=== PATIENT | female | born 1940 | race Hispanic/Latino ===

== ENCOUNTER 2017-05-23 09:54 | Day surgery (SDC) | payer MEDICARE ==
[~2017-05-23 09:54] MED LIST: ANCEF/STERILE WATER 2 GM/20 ML 2 GM/20 ML SYRINGE IV NR; NACL 0.9% 1000 ML 1,000 ML IV SCH
[2017-05-23 11:19] LABS: Basophils % (Auto) 0.4 % (0.0-1.8); Eosinophils % (Auto) 3.3 % (0.0-4.3); Hematocrit 38.9 % (30.3-42.9); Hemoglobin 13.3 gm/dl (10.1-14.3); Mean Corpuscular HGB Conc 34 % (30-34); Mean Corpuscular Hemoglobin 31 pg (28-32); Mean Corpuscular Volume 92 fl (79-97); Platelet Count 198 K/mm3 (140-440); Red Blood Count 4.23 M/mm3 (3.65-5.03); Red Cell Distribution Width 14.4 % (13.2-15.2); White Blood Count 4.5 K/mm3 (4.5-11.0)
[2017-05-23 11:32] LABS: Calcium 8.8 mg/dL (8.4-10.2); Chloride 102.5 mmol/L (98-107); Potassium 4.6 mmol/L (3.6-5.0)
--- NOTE | 2017-05-23 11:49 | Short Stay Summary ---
Short Stay Documentation Date of service: 05/23/17 - History Principal diagnosis: Venous hypertension Past Medical History: DVT Past Surgical History: bowel surgery Social history: no significant social history - Allergies and Medications Current Medications: Allergies ether Allergy (Verified 06/03/16 07:18) Nausea Home Medications Medication Instructions Recorded Confirmed Last Taken Type Amlodipine Besylate [Amlodipine 10 mg PO DAILY 12/11/15 05/23/17 05/23/17 History Besylate] Topiramate [Topiramate] 50 mg PO DAILY 12/11/15 05/23/17 05/23/17 History levETIRAcetam [Levetiracetam] 750 mg PO BID 12/11/15 05/23/17 05/22/17 History Apixaban [Eliquis] 5 mg PO BID 05/23/17 05/23/17 05/22/17 History Ferrous Sulfate [Iron] 325 mg PO DAILY 05/23/17 05/23/17 05/22/17 History Pantoprazole Sodium [Pantoprazole 40 mg PO BID 05/23/17 05/23/17 05/22/17 History Sodium] Active Medications Cefazolin Sodium (Ancef/Sterile Water 2 Gm/20 Ml) 2 gm in 20 mls @ 80 mls/hr IV PREOP NR PRN Reason: Protocol Stop: 05/23/17 23:00 Sodium Chloride (Nacl 0.9% 1000 Ml) 1,000 mls @ 42 mls/hr IV DIRECT LOIS - Physical exam General appearance: no acute distress Integumentary: no rash, no growths HEENT: Atraumatic Lungs: Normal air movement Breasts: deferred Heart: Regular rate Gastrointestinal: normal Female Genitourinary: deferred Rectal Exam: deferred Extremities: abnormal (edema) Neurological: Normal gait, Normal speech - Brief post op/procedure progress note Date of procedure: 05/23/17 Pre-op diagnosis: LLE venous hypertensiojn Post-op diagnosis: same Procedure: LLE venography, venoplasty Anesthesia: local Surgeon: MAINOR WADE Estimated blood loss: minimal Pathology: none Condition: stable - Disposition Condition at discharge: Good Disposition: [id number] TO HOME OR SELFCARE Short Stay Discharge Plan Activity: advance as tolerated Weight Bearing Status: Weight Bear as Tolerated Diet: regular Wound: keep clean and dry, per your surgeon's advice Follow up with: ANNE-MARIE CAMPBELL MD [Primary Care Provider] - 7 Days
[2017-05-23] MEDS ORDERED: VERSED ONE ×2 (17:00→17:47)
[2017-05-23] MEDS ORDERED: SUBLIMAZE ONE ×2 (17:00→17:48)
[2017-05-23] MEDS ORDERED: XYLOCAINE 2% INFILTRATI ONE ×4 (17:00→17:19)
[2017-05-23] MEDS ORDERED: HEPARIN/NS 5000 UNIT/500ML(CATH LAB) IR ONE (17:00)
[2017-05-23] MEDS ORDERED: BENADRYL ONE (17:16)
[2017-05-23] MEDS ORDERED: SUBLIMAZE IV ONE (17:16)
[2017-05-23] MEDS ORDERED: VERSED IV ONE ×5 (17:16→17:48)
[2017-05-23] MEDS: SUBLIMAZE IV ONE ×2 (17:19→17:30)
[2017-05-23] MEDS ORDERED: BENADRYL IV ONE (17:21)
[2017-05-23] MEDS ORDERED: ANCEF/STERILE WATER 2 GM/20 ML 2 GM/20 ML SYRINGE IV ONE (17:28)
[2017-05-23] MEDS ORDERED: HEPARIN 10,000 UNITS/10 ML IV ONE (17:30)
[2017-05-23] MEDS ORDERED: HEPARIN 10,000 UNITS/10 ML ONE (17:39)
[2017-05-23] MEDS ORDERED: HEPARIN/NS 5000 UNIT/500ML(CATH LAB) 500 ML IR ONE (17:39)
--- NOTE | 2017-05-23 18:10 | Operative Report ---
Operative Report Operative Report: EXAM: LEFT LOWER EXTREMITY VENOGRAM, VENOPLASTY CLINICAL INDICATION: PATIENT WITH A HISTORY OF VENOUS HYPERTENSION AND PREVIOUSLY PLACED STENTS. SHE WAS REMOVED FROM HER ANTICOAGULATION SECONDARY TO GI BLEED DATE: 05/23/2017 PROCEDURE: Following an explanation of the risks, benefits and alternatives; written informed consent was obtained. The patient was brought to the angiographic suite and placed in prone position on the examination table. Initial ultrasound evaluation of the leg demonstrated a patent although diminutive left popliteal vein. The patient's left leg was prepped and draped in the usual sterile fashion. 1% lidocaine was used for anesthesia. Under ultrasound guidance, the left popliteal vein was cannulated with a 7 cm 21 -gauge needle. A 0.018 guidewire was advanced centrally and the needle exchanged for a micro-sheath. The inner dilator and guidewire were removed and initial venography performed through the micro-sheath. The stem a straight a patent popliteal vein and distal femoral vein. The 0.035 guidewire was then advanced through the micro-sheath and the micro-sheath exchanged for a 5 [employer] vascular sheath. A 4 [place] [employer] vertebral catheter and 0.035 guidewire were then advanced through the sheath to the mid femoral vein. Additional imaging was obtained which demonstrated a tortuosity and extensive collaterals in the proximal thigh. The femoral vein appears to and 5-6 cm below the level of the inguinal ligament. Previously placed stents are noted. There is extensive pelvic collaterals and peroneal drainage of the left leg into the right. The vertebral catheter and a variety of guidewires were utilized in an attempt to cannulate the occluded sheaths. The there was exchanged for an 035 [employer] catheter also in an attempt to gain through the occluded sheaths. I this ultimately was unsuccessful. A 12 mm x 2 cm balloon was then advanced into the proximal femoral vein to Center the guidewires. The balloon was insufflated to 8 regan during the procedure and a variety of additional guidewires utilized. Ultimately venoplasty was performed at multiple locations approaching the stents however, at the level of the stents, the guidewire would veer posterior. No drainage was seen through the left common iliac her external iliac stents. At this point, decision made to terminate the procedure. The patient tolerated the procedure well. There were no immediate post procedure complications. Conscious sedation was performed under the guidance of radiologic nursing. Continuous cardiopulmonary monitoring was utilized. 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 2) Venoplasty of the proximal femoral vein. 3) Attempts to cross the occluded lesion from a popliteal approach were unsuccessful, the patient may return for internal jugular vein approach however , this is likely to be unsuccessful. If the patient continues to remain symptomatic despite conservative care she may need a Mascorro procedure.
[2017-05-23 19:23] VITALS: BP 156/78
== END 2017-05-23 19:30 | disposition home or self-care (01) ==
LOC: CATHLABREC 09:54
PROVIDERS: ATTEND Radiology Diagnostic Radiology
DX: I82.522 Chronic embolism and thrombosis of left iliac vein (principal); I48.91 Unspecified atrial fibrillation; I87.2 Venous insufficiency (chronic) (peripheral); N18.3 Chronic kidney disease, stage 3 (moderate); J44.9 Chronic obstructive pulmonary disease, unspecified; I12.0 Hypertensive chronic kidney disease with stage 5 chronic kidney disease or end stage renal disease; I82.512 Chronic embolism and thrombosis of left femoral vein; F32.9 Major depressive disorder, single episode, unspecified; K21.9 Gastro-esophageal reflux disease without esophagitis; E78.5 Hyperlipidemia, unspecified; G40.909 Epilepsy, unspecified, not intractable, without status epilepticus; Z98.890 Other specified postprocedural states; Z96.653 Presence of artificial knee joint, bilateral; Z83.3 Family history of diabetes mellitus; Z79.01 Long term (current) use of anticoagulants
CPT/HCPCS: 36415; 37248; 75820; 80048; 85025; C1725; C1751; C1769; J0690; J1200; J1644; J2250; J3010; J7030; Q9967